=== PATIENT | female | born 1945 | race Hispanic/Latino ===

== ENCOUNTER 2017-10-19 11:23 | Inpatient (IN) | payer MEDICARE ==
[~2017-10-19] VITALS: Ht 167.6 cm; Wt 134.3 kg
[2017-10-19 12:08] LABS: BASOPHILS % (AUTO) 0.4 % (0.0-5.0); EOSINOPHILS % (AUTO) 1.9 % (0.0-8.0); HEMATOCRIT 27.3 % (36-48); LYMPHOCYTES % (AUTO) 17.4 % (21.0-51.0); MEAN CORPUSCULAR HEMOGLOBIN 28.6 pg (27.0-33.0); MEAN CORPUSCULAR HGB CONC 33.6 g/dL (32.0-36.0); MEAN CORPUSCULAR VOLUME 85.2 fL (79-99); MONOCYTES % (AUTO) 5.2 % (3.0-13.0); NEUTROPHILS % (AUTO) 75.1 % (40.0-77.0); PLATELET COUNT (AUTO) 375 K/uL (130-400); RED BLOOD CELL COUNT(AUTO) 3.21 MIL/uL (4.00-5.50); RED CELL DISTRIBUTION WIDTH 18.8 % (11.0-15.5); WHITE BLOOD COUNT (AUTO) 10.3 K/uL (4.8-10.8)
[2017-10-19] MEDS ORDERED: GLUCAGON 1MG KIT 1 MG ML IM PRN (12:15)
[2017-10-19] MEDS ORDERED: LACTULOSE 20 GM/30 ML UDCUP PO PRN (12:15)
[2017-10-19] MEDS ORDERED: ZOLPIDEM TARTRATE 5 MG TAB PO PRN (12:15)
[2017-10-19] MEDS ORDERED: MAG HYDROX/AL HYDROX/SIMETH ES 30 ML SUSP UDCUP PO PRN (12:15)
[2017-10-19] MEDS ORDERED: DIPHENHYDRAMINE HCL 25 MG CAPSULE PO PRN (12:15)
[2017-10-19] MEDS ORDERED: ONDANSETRON HCL 4 MG/2 ML VIAL IVP PRN (12:15)
[2017-10-19] MEDS ORDERED: SODIUM CHLORIDE 0.9% 10 ML VIAL IVP PRN (12:15)
[2017-10-19] MEDS ORDERED: LIDOCAINE HCL-MPF 1% 2ML VIAL IJ PRN (12:15)
[2017-10-19] MEDS ORDERED: NITROGLYCERIN 0.4 MG SL TAB SL PRN (12:15)
[2017-10-19] MEDS: SODIUM CHLORIDE 0.9% 1000ML 1,000 ML IV SCH (12:15)
[2017-10-19] MEDS ORDERED: ACETAMINOPHEN 325 MG TAB PO PRN ×2 (12:15)
[2017-10-19] MEDS ORDERED: POTASSIUM CHLORIDE 10% ELIXIR 20 MEQ/15 ML UDCUP PO PRN (12:15)
[2017-10-19] MEDS ORDERED: GUAIFENESIN SUGAR-FREE 100 MG/5 ML UDCUP PO PRN (12:15)
[2017-10-19] MEDS ORDERED: POTASSIUM CHLORIDE 20MEQ/100ML 100 ML IV PRN (12:15)
[2017-10-19] MEDS ORDERED: DiphenhydrAMINE HCL 50 MG/ML VIAL IVP PRN (12:15)
[2017-10-19] MEDS ORDERED: CLONIDINE HCL 0.1 MG TABLET PO PRN (12:15)
[2017-10-19] MEDS ORDERED: DEXTROSE 50%-WATER 50 ML DISP.SYRIN IV PRN (12:15)
[2017-10-19 12:28] LABS: CREATININE 1.4 mg/dL (0.5-1.5)
[2017-10-19 12:32] LABS: ALBUMIN 2.8 g/dL (3.5-5.0); BILIRUBIN,TOTAL 0.3 mg/dL (0.2-1.0)
[2017-10-19 12:39] LABS: B-TYPE NATRIURETIC PEPTIDE 227 pg/mL (0-100)
[2017-10-19] MEDS ORDERED: IPRATROPIUM/ALBUTEROL SULFATE 3 ML SOLUTION IH ONE (13:27)
[2017-10-19] MEDS: IPRATROPIUM/ALBUTEROL SULFATE 3 ML SOLUTION IH PRN ×3 (13:48→22:56)
[2017-10-19] MEDS: INSULIN R PO SSI SQ SCH ×2 (16:30→21:00)
[2017-10-19] MEDS ORDERED: SODIUM CHLORIDE 0.9% 1000ML 1,000 ML IV ONE (16:59)
[2017-10-19] MEDS: FAMOTIDINE 20MG TAB 20 MG TAB PO SCH (21:00)
[2017-10-19] MEDS ORDERED: NITROGLYCERIN 0.4 MG SL TAB SL ONE (23:09)
[2017-10-20] MEDS ORDERED: INSU100I21 SQ (01:30)
[2017-10-20] MEDS ORDERED: PANT40TA25 PO (01:30)
[2017-10-20] MEDS ORDERED: ADV250 IH (01:30)
[2017-10-20] MEDS ORDERED: ALBU90AE PUFF (01:30)
[2017-10-20] MEDS ORDERED: EXEN10PE3 SQ (01:30)
[2017-10-20] MEDS ORDERED: SAXA5TAB PO (01:30)
[2017-10-20] MEDS ORDERED: ALBU0.63 IH (01:30)
[2017-10-20] MEDS ORDERED: ISOS60TA4 PO (01:30)
[2017-10-20] MEDS ORDERED: CARV25TA PO (01:30)
[2017-10-20] MEDS ORDERED: GLIP10TA9 PO (01:30)
[2017-10-20] MEDS ORDERED: PREG75 PO (01:30)
[2017-10-20] MEDS ORDERED: FURO40TA5 PO (01:30)
[2017-10-20] MEDS ORDERED: ROSU10TA27 PO (01:30)
[2017-10-20] MEDS ORDERED: SERT50TA12 PO (01:30)
[2017-10-20] MEDS ORDERED: FERR324T8 PO (01:30)
[2017-10-20] MEDS ORDERED: METO2.5T2 PO (01:30)
[2017-10-20] MEDS ORDERED: SENN-183 PO (01:30)
[2017-10-20] MEDS ORDERED: POTA-9 PO (01:30)
[2017-10-20] MEDS ORDERED: ALLO100T PO (01:30)
[2017-10-20] MEDS ORDERED: AUD IH (01:38)
[2017-10-20] MEDS: IPRATROPIUM/ALBUTEROL SULFATE 3 ML SOLUTION IH PRN ×2 (01:45→06:41)
[2017-10-20] MEDS: SODIUM CHLORIDE 0.9% 1000ML 1,000 ML IV SCH ×3 (02:08→22:00)
[2017-10-20 04:00] VITALS: BP 142/60
[2017-10-20] MEDS: INSULIN R PO SSI SQ SCH ×5 (05:51→20:37)
[2017-10-20 08:00] VITALS: BP 168/76
[2017-10-20] MEDS: FAMOTIDINE 20MG TAB 20 MG TAB PO SCH ×2 (08:31→20:17)
[2017-10-20] MEDS: IPRATROPIUM/ALBUTEROL SULFATE 3 ML SOLUTION IH SCH ×4 (09:52→21:40)
[2017-10-20 11:30] VITALS: BP 136/59
[2017-10-20 16:00] VITALS: BP 171/66
[2017-10-20 20:00] VITALS: BP 148/61
[2017-10-20] MEDS ORDERED: METOCLOPRAMIDE 10 MG/2 ML VIAL IVP SCH (21:30)
[2017-10-20] MEDS ORDERED: LACTULOSE 20 GM/30 ML UDCUP PO SCH (21:30)
[2017-10-20 23:42] VITALS: BP 134/60
[2017-10-21] MEDS: IPRATROPIUM/ALBUTEROL SULFATE 3 ML SOLUTION IH SCH ×2 (01:27→06:19)
[2017-10-21 04:00] VITALS: BP 152/65
[2017-10-21 06:02] LABS: HEMATOCRIT 27.8 % (36-48); MEAN CORPUSCULAR HEMOGLOBIN 29.2 pg (27.0-33.0); MEAN CORPUSCULAR HGB CONC 34.2 g/dL (32.0-36.0); MEAN CORPUSCULAR VOLUME 85.5 fL (79-99); PLATELET COUNT (AUTO) 353 K/uL (130-400); RED BLOOD CELL COUNT(AUTO) 3.25 MIL/uL (4.00-5.50); RED CELL DISTRIBUTION WIDTH 18.9 % (11.0-15.5); WHITE BLOOD COUNT (AUTO) 15.4 K/uL (4.8-10.8)
[2017-10-21 06:21] LABS: POTASSIUM 4.1 mmol/L (3.5-5.1)
[2017-10-21 06:24] LABS: INR 0.98 (0.85-1.15); PARTIAL THROMBOPLASTIN TIME 26.6 SEC (26.3-35.5); PROTHROMBIN TIME 10.3 SEC (9.6-11.6)
[2017-10-21] MEDS: INSULIN R PO SSI SQ SCH ×3 (06:43→21:01)
[2017-10-21 07:30] VITALS: BP 164/68
[2017-10-21] MEDS: FAMOTIDINE 20MG TAB 20 MG TAB PO SCH ×2 (09:00→20:50)
[2017-10-21] MEDS ORDERED: LABETALOL 20 MG/4 ML DISP.SYRIN IV PRN (11:30)
[2017-10-21] MEDS: CEFTRIAXONE SODIUM 1 GM IVP SCH (12:13)
[2017-10-21] MEDS ORDERED: CEFTRIAXONE 1GM/D5W 50ML 50 ML IV SCH (12:30)
[2017-10-21] MEDS: IPRATROPIUM/ALBUTEROL SULFATE 3 ML SOLUTION IH PRN (13:40)
[2017-10-21 14:50] VITALS: BP 174/77
[2017-10-21] MEDS ORDERED: FUROSEMIDE 10 MG/ML 4ML VIAL IV SCH (15:00)
[2017-10-21 15:13] LABS: MAGNESIUM 2.2 mg/dL (1.80-2.40)
[2017-10-21] MEDS ORDERED: FUROSEMIDE 10 MG/ML 4ML VIAL ONE (15:42)
[2017-10-21 16:00] VITALS: BP 161/75
[2017-10-21] MEDS ORDERED: PREGABALIN 75 MG CAPSULE PO PRN (16:30)
[2017-10-21 19:16] VITALS: BP 161/66
[2017-10-21] MEDS: ISOSORBIDE MONO 60 MG TAB.SR PO SCH (20:49)
[2017-10-21] MEDS: ALLOPURINOL 100 MG TABLET PO SCH (20:50)
[2017-10-21] MEDS: FUROSEMIDE 40 MG TABLET PO SCH (20:50)
[2017-10-21] MEDS: SERTRALINE HCL 50 MG TABLET PO SCH (20:50)
[2017-10-21] MEDS: CARVEDILOL 25 MG TABLET PO SCH (20:50)
[2017-10-21] MEDS: PANTOPRAZOLE SODIUM 40 MG TABLET.DR PO SCH (20:50)
[2017-10-21] MEDS: GLIPIZIDE 5 MG TABLET PO SCH (20:51)
[2017-10-21] MEDS: METOLAZONE 2.5 MG TABLET PO SCH (20:58)
[2017-10-21] MEDS ORDERED: NON-FORMULARY MEDICATION 1 EACH (Albuterol Sulfate (Proair Respiclick) 90 MCG) PUFF SCH (21:00)
[2017-10-21] MEDS ORDERED: ALBUTEROL SULFATE 0.083% 2.5 MG/3 ML INH IH SCH (22:00)
[2017-10-21] MEDS: ALBUTEROL SULFATE 0.083% 2.5 MG/3 ML INH IH SCH (22:08)
[2017-10-21] MEDS: BUDESONIDE 0.5 MG/2 ML INH IH SCH (22:28)
[2017-10-21 23:24] VITALS: BP 139/44
[2017-10-22 03:42] VITALS: BP 132/48
[2017-10-22 04:14] LABS: MEAN CORPUSCULAR HEMOGLOBIN 27.4 pg (27.0-33.0); MEAN CORPUSCULAR HGB CONC 32.2 g/dL (32.0-36.0); MEAN CORPUSCULAR VOLUME 85.1 fL (79-99); PLATELET COUNT (AUTO) 303 K/uL (130-400); RED BLOOD CELL COUNT(AUTO) 2.94 MIL/uL (4.00-5.50); RED CELL DISTRIBUTION WIDTH 18.6 % (11.0-15.5); WHITE BLOOD COUNT (AUTO) 9.3 K/uL (4.8-10.8)
[2017-10-22 04:21] LABS: CREATININE 1.1 mg/dL (0.5-1.5); POTASSIUM 3.3 mmol/L (3.5-5.1)
[2017-10-22] MEDS: ALBUTEROL SULFATE 0.083% 2.5 MG/3 ML INH IH SCH ×3 (06:29→22:03)
[2017-10-22] MEDS: BUDESONIDE 0.5 MG/2 ML INH IH SCH ×2 (06:29→18:01)
[2017-10-22] MEDS: INSULIN R PO SSI SQ SCH ×4 (06:38→21:14)
[2017-10-22] MEDS: POTASSIUM CHLORIDE 20 MEQ ERTAB PO PRN ×3 (06:57→21:08)
[2017-10-22 07:33] VITALS: BP 133/71
[2017-10-22] MEDS: EXENATIDE 10 MCG SQ SCH ×2 (09:00→21:00)
[2017-10-22] MEDS: Rosuvastatin Calcium 10 MG PO SCH (09:00)
[2017-10-22] MEDS ORDERED: ONDANSETRON HCL MDV 20ML 2 MG/ML VIAL IVP PRN (10:00)
[2017-10-22] MEDS: CEFTRIAXONE SODIUM 1 GM IVP SCH (11:10)
[2017-10-22] MEDS: SENNOSIDES 8.6 MG TABLET PO SCH (11:11)
[2017-10-22] MEDS: FUROSEMIDE 40 MG TABLET PO SCH ×3 (11:11→21:07)
[2017-10-22] MEDS: ALLOPURINOL 100 MG TABLET PO SCH ×2 (11:11→21:06)
[2017-10-22] MEDS: GLIPIZIDE 5 MG TABLET PO SCH ×2 (11:12→21:07)
[2017-10-22] MEDS: POTASSIUM CHLORIDE 10 MEQ/TAB.SA PO SCH (11:12)
[2017-10-22 11:13] VITALS: BP 159/72
[2017-10-22] MEDS: FERROUS GLUCONATE 325 MG TABLET PO SCH ×2 (11:13→21:07)
[2017-10-22] MEDS: CARVEDILOL 25 MG TABLET PO SCH ×2 (11:13→21:06)
[2017-10-22] MEDS: PANTOPRAZOLE SODIUM 40 MG TABLET.DR PO SCH ×2 (11:13→21:06)
[2017-10-22] MEDS: FAMOTIDINE 20MG TAB 20 MG TAB PO SCH ×2 (11:13→21:06)
[2017-10-22] MEDS: INSULIN GLARGINE 100 UNITS/ML 10 ML VIAL SQ SCH (11:28)
[2017-10-22 13:26] LABS: HEMATOCRIT 25.9 % (36-48)
[2017-10-22 16:27] VITALS: BP 136/56
[2017-10-22 19:24] VITALS: BP 152/63
[2017-10-22] MEDS: ISOSORBIDE MONO 60 MG TAB.SR PO SCH (21:08)
[2017-10-22 23:26] VITALS: BP 129/42
[2017-10-23 03:29] VITALS: BP 130/54
[2017-10-23 04:21] LABS: HEMATOCRIT 24.3 % (36-48); MEAN CORPUSCULAR HGB CONC 33.3 g/dL (32.0-36.0); MEAN CORPUSCULAR VOLUME 84.2 fL (79-99); PLATELET COUNT (AUTO) 295 K/uL (130-400); RED BLOOD CELL COUNT(AUTO) 2.88 MIL/uL (4.00-5.50); WHITE BLOOD COUNT (AUTO) 9.1 K/uL (4.8-10.8)
[2017-10-23 04:34] LABS: CREATININE 1.1 mg/dL (0.5-1.5); POTASSIUM 3.7 mmol/L (3.5-5.1)
[2017-10-23] MEDS: ALBUTEROL SULFATE 0.083% 2.5 MG/3 ML INH IH SCH ×3 (06:38→20:25)
[2017-10-23] MEDS ORDERED: MORPHINE SULFATE 4 MG/1ML SYG IV PRN (07:30)
[2017-10-23] MEDS: INSULIN R PO SSI SQ SCH ×4 (07:30→21:19)
[2017-10-23 08:00] VITALS: BP 158/69
[2017-10-23] MEDS: GLIPIZIDE 5 MG TABLET PO SCH ×2 (08:42→21:11)
[2017-10-23] MEDS: ALLOPURINOL 100 MG TABLET PO SCH ×2 (08:42→21:11)
[2017-10-23] MEDS: METOLAZONE 2.5 MG TABLET PO SCH (08:42)
[2017-10-23] MEDS: FUROSEMIDE 40 MG TABLET PO SCH ×3 (08:43→21:12)
[2017-10-23] MEDS: FAMOTIDINE 20MG TAB 20 MG TAB PO SCH ×2 (08:43→21:11)
[2017-10-23] MEDS: POTASSIUM CHLORIDE 10 MEQ/TAB.SA PO SCH (08:43)
[2017-10-23] MEDS: SENNOSIDES 8.6 MG TABLET PO SCH (08:44)
[2017-10-23] MEDS: PANTOPRAZOLE SODIUM 40 MG TABLET.DR PO SCH ×2 (08:44→21:11)
[2017-10-23] MEDS: CARVEDILOL 25 MG TABLET PO SCH ×2 (08:44→21:11)
[2017-10-23] MEDS: Rosuvastatin Calcium 10 MG PO SCH (09:00)
[2017-10-23] MEDS: EXENATIDE 10 MCG SQ SCH (09:00)
[2017-10-23] MEDS: INSULIN GLARGINE 100 UNITS/ML 10 ML VIAL SQ SCH (09:00)
[2017-10-23] MEDS: BUDESONIDE 0.5 MG/2 ML INH IH SCH ×2 (09:21→20:25)
[2017-10-23 11:47] VITALS: BP 146/57
[2017-10-23] MEDS: CEFTRIAXONE SODIUM 1 GM IVP SCH (12:42)
[2017-10-23 15:49] VITALS: BP 147/55
[2017-10-23] MEDS: FERROUS GLUCONATE 325 MG TABLET PO SCH ×2 (15:53→21:12)
[2017-10-23 20:00] VITALS: BP 155/77
[2017-10-23] MEDS: ISOSORBIDE MONO 60 MG TAB.SR PO SCH (21:12)
[2017-10-23] MEDS: SERTRALINE HCL 50 MG TABLET PO SCH (21:12)
[2017-10-23 23:55] VITALS: BP 138/54
[2017-10-24 03:57] VITALS: BP 140/55
[2017-10-24 04:29] LABS: HEMATOCRIT 26.5 % (36-48); MEAN CORPUSCULAR HEMOGLOBIN 28.9 pg (27.0-33.0); MEAN CORPUSCULAR VOLUME 85.1 fL (79-99); PLATELET COUNT (AUTO) 335 K/uL (130-400); RED BLOOD CELL COUNT(AUTO) 3.11 MIL/uL (4.00-5.50); RED CELL DISTRIBUTION WIDTH 18.3 % (11.0-15.5); WHITE BLOOD COUNT (AUTO) 7.6 K/uL (4.8-10.8)
[2017-10-24] MEDS: ALBUTEROL SULFATE 0.083% 2.5 MG/3 ML INH IH SCH ×3 (06:03→22:04)
[2017-10-24] MEDS: INSULIN R PO SSI SQ SCH ×4 (06:07→21:00)
[2017-10-24] MEDS: BUDESONIDE 0.5 MG/2 ML INH IH SCH ×2 (06:25→22:04)
[2017-10-24 08:00] VITALS: BP 154/69
[2017-10-24] MEDS: Rosuvastatin Calcium 10 MG PO SCH (09:00)
[2017-10-24] MEDS: EXENATIDE 10 MCG SQ SCH (09:00)
[2017-10-24] MEDS: FAMOTIDINE 20MG TAB 20 MG TAB PO SCH ×2 (10:09→21:32)
[2017-10-24] MEDS: ALLOPURINOL 100 MG TABLET PO SCH ×2 (10:09→21:32)
[2017-10-24] MEDS: CARVEDILOL 25 MG TABLET PO SCH ×2 (10:09→21:33)
[2017-10-24] MEDS: PANTOPRAZOLE SODIUM 40 MG TABLET.DR PO SCH ×2 (10:09→21:33)
[2017-10-24] MEDS: SENNOSIDES 8.6 MG TABLET PO SCH (10:20)
[2017-10-24] MEDS: METOLAZONE 2.5 MG TABLET PO SCH (10:20)
[2017-10-24] MEDS: POTASSIUM CHLORIDE 10 MEQ/TAB.SA PO SCH (10:21)
[2017-10-24] MEDS: FERROUS GLUCONATE 325 MG TABLET PO SCH ×2 (10:21→21:32)
[2017-10-24] MEDS: FUROSEMIDE 40 MG TABLET PO SCH ×3 (10:21→21:32)
[2017-10-24] MEDS: INSULIN GLARGINE 100 UNITS/ML 10 ML VIAL SQ SCH (10:28)
[2017-10-24 11:38] VITALS: BP 169/73
[2017-10-24] MEDS: CEFTRIAXONE SODIUM 1 GM IVP SCH (11:53)
[2017-10-24 15:55] VITALS: BP 147/56
[2017-10-24 20:00] VITALS: BP 157/70
[2017-10-24] MEDS: ISOSORBIDE MONO 60 MG TAB.SR PO SCH (21:32)
[2017-10-24] MEDS: SERTRALINE HCL 50 MG TABLET PO SCH (21:33)
[2017-10-24 23:55] VITALS: BP 120/49
[2017-10-25 04:00] VITALS: BP 117/42
[2017-10-25 05:47] LABS: HEMATOCRIT 25.6 % (36-48); MEAN CORPUSCULAR HEMOGLOBIN 27.6 pg (27.0-33.0); MEAN CORPUSCULAR HGB CONC 32.5 g/dL (32.0-36.0); MEAN CORPUSCULAR VOLUME 85.1 fL (79-99); PLATELET COUNT (AUTO) 295 K/uL (130-400); RED BLOOD CELL COUNT(AUTO) 3.01 MIL/uL (4.00-5.50); WHITE BLOOD COUNT (AUTO) 6.3 K/uL (4.8-10.8)
[2017-10-25 05:59] LABS: CREATININE 1.1 mg/dL (0.5-1.5); POTASSIUM 3.2 mmol/L (3.5-5.1)
[2017-10-25] MEDS: ALBUTEROL SULFATE 0.083% 2.5 MG/3 ML INH IH SCH ×3 (06:02→21:47)
[2017-10-25] MEDS: BUDESONIDE 0.5 MG/2 ML INH IH SCH ×2 (06:17→21:55)
[2017-10-25] MEDS: INSULIN R PO SSI SQ SCH ×4 (07:30→20:50)
[2017-10-25 08:13] VITALS: BP 163/58
[2017-10-25] MEDS: INSULIN GLARGINE 100 UNITS/ML 10 ML VIAL SQ SCH (09:00)
[2017-10-25] MEDS: PANTOPRAZOLE SODIUM 40 MG TABLET.DR PO SCH ×2 (09:15→20:49)
[2017-10-25] MEDS: FUROSEMIDE 40 MG TABLET PO SCH ×3 (09:15→20:48)
[2017-10-25] MEDS: FAMOTIDINE 20MG TAB 20 MG TAB PO SCH ×2 (09:16→20:50)
[2017-10-25] MEDS: ALLOPURINOL 100 MG TABLET PO SCH ×2 (09:16→20:49)
[2017-10-25] MEDS: SENNOSIDES 8.6 MG TABLET PO SCH (09:16)
[2017-10-25] MEDS: CARVEDILOL 25 MG TABLET PO SCH ×2 (09:16→20:49)
[2017-10-25] MEDS: POTASSIUM CHLORIDE 10 MEQ/TAB.SA PO SCH (09:17)
[2017-10-25] MEDS: FERROUS GLUCONATE 325 MG TABLET PO SCH ×2 (09:36→20:48)
[2017-10-25] MEDS: Rosuvastatin Calcium 10 MG PO SCH (10:00)
[2017-10-25 12:06] VITALS: BP 171/67
[2017-10-25] MEDS: CEFTRIAXONE SODIUM 1 GM IVP SCH (12:23)
[2017-10-25] MEDS: POTASSIUM CHLORIDE 20 MEQ ERTAB PO PRN ×3 (15:10→20:49)
[2017-10-25 16:17] VITALS: BP 133/44
[2017-10-25 19:10] VITALS: BP 140/54
[2017-10-25] MEDS: ISOSORBIDE MONO 60 MG TAB.SR PO SCH (20:49)
[2017-10-25] MEDS: SERTRALINE HCL 50 MG TABLET PO SCH (20:50)
[2017-10-26] VITALS (7 sets, daily range): BP systolic 114–171; BP diastolic 51–84
[2017-10-26 05:35] LABS: MEAN CORPUSCULAR HEMOGLOBIN 27.9 pg (27.0-33.0); MEAN CORPUSCULAR HGB CONC 32.9 g/dL (32.0-36.0); MEAN CORPUSCULAR VOLUME 84.8 fL (79-99); PLATELET COUNT (AUTO) 318 K/uL (130-400); RED BLOOD CELL COUNT(AUTO) 3.07 MIL/uL (4.00-5.50)
[2017-10-26] MEDS: ALBUTEROL SULFATE 0.083% 2.5 MG/3 ML INH IH SCH ×3 (06:06→22:58)
[2017-10-26] MEDS: BUDESONIDE 0.5 MG/2 ML INH IH SCH ×2 (06:06→23:35)
[2017-10-26 08:51] LABS: CREATININE 1.1 mg/dL (0.5-1.5); POTASSIUM 3.6 mmol/L (3.5-5.1)
[2017-10-26] MEDS: EXENATIDE 10 MCG SQ SCH ×3 (09:00→21:00)
[2017-10-26] MEDS: INSULIN GLARGINE 100 UNITS/ML 10 ML VIAL SQ SCH (09:00)
[2017-10-26] MEDS: Rosuvastatin Calcium 10 MG PO SCH (09:00)
[2017-10-26] MEDS: INSULIN R PO SSI SQ SCH ×4 (10:00→21:09)
[2017-10-26] MEDS: POTASSIUM CHLORIDE 10 MEQ/TAB.SA PO SCH (10:04)
[2017-10-26] MEDS: SENNOSIDES 8.6 MG TABLET PO SCH (10:04)
[2017-10-26] MEDS: FUROSEMIDE 40 MG TABLET PO SCH ×3 (10:04→21:06)
[2017-10-26] MEDS: CARVEDILOL 25 MG TABLET PO SCH ×2 (10:05→21:06)
[2017-10-26] MEDS: PANTOPRAZOLE SODIUM 40 MG TABLET.DR PO SCH ×2 (10:05→21:06)
[2017-10-26] MEDS: FAMOTIDINE 20MG TAB 20 MG TAB PO SCH ×2 (10:05→21:06)
[2017-10-26] MEDS: FERROUS GLUCONATE 325 MG TABLET PO SCH ×2 (10:06→21:05)
[2017-10-26] MEDS: ALLOPURINOL 100 MG TABLET PO SCH ×2 (10:06→21:05)
[2017-10-26] MEDS: METOLAZONE 2.5 MG TABLET PO SCH (10:06)
[2017-10-26] MEDS: CEFTRIAXONE SODIUM 1 GM IVP SCH (12:23)
[2017-10-26] MEDS: SERTRALINE HCL 50 MG TABLET PO SCH (21:05)
[2017-10-26] MEDS: ISOSORBIDE MONO 60 MG TAB.SR PO SCH (21:05)
[2017-10-27 03:00] VITALS: BP 119/44
[2017-10-27 04:11] LABS: HEMATOCRIT 25.8 % (36-48); MEAN CORPUSCULAR HEMOGLOBIN 29.4 pg (27.0-33.0); MEAN CORPUSCULAR HGB CONC 34.5 g/dL (32.0-36.0); MEAN CORPUSCULAR VOLUME 85.1 fL (79-99); PLATELET COUNT (AUTO) 283 K/uL (130-400); RED BLOOD CELL COUNT(AUTO) 3.03 MIL/uL (4.00-5.50)
[2017-10-27] MEDS: INSULIN R PO SSI SQ SCH ×2 (06:02→13:10)
[2017-10-27] MEDS: ALBUTEROL SULFATE 0.083% 2.5 MG/3 ML INH IH SCH (06:42)
[2017-10-27] MEDS: BUDESONIDE 0.5 MG/2 ML INH IH SCH (06:42)
[2017-10-27 07:56] VITALS: BP 149/61
[2017-10-27] MEDS: INSULIN GLARGINE 100 UNITS/ML 10 ML VIAL SQ SCH (09:00)
[2017-10-27] MEDS: Rosuvastatin Calcium 10 MG PO SCH (09:00)
[2017-10-27] MEDS: EXENATIDE 10 MCG SQ SCH (09:00)
[2017-10-27] MEDS: ALLOPURINOL 100 MG TABLET PO SCH (10:25)
[2017-10-27] MEDS: PANTOPRAZOLE SODIUM 40 MG TABLET.DR PO SCH (10:25)
[2017-10-27] MEDS: FAMOTIDINE 20MG TAB 20 MG TAB PO SCH (10:25)
[2017-10-27] MEDS: CARVEDILOL 25 MG TABLET PO SCH (10:26)
[2017-10-27] MEDS: SENNOSIDES 8.6 MG TABLET PO SCH (10:31)
[2017-10-27] MEDS: FERROUS GLUCONATE 325 MG TABLET PO SCH (10:31)
[2017-10-27] MEDS: POTASSIUM CHLORIDE 10 MEQ/TAB.SA PO SCH (10:31)
[2017-10-27] MEDS: FUROSEMIDE 40 MG TABLET PO SCH ×2 (10:32→13:07)
[2017-10-27 11:06] VITALS: BP 136/60
[2017-10-27] MEDS: CEFTRIAXONE SODIUM 1 GM IVP SCH (13:07)
== END 2017-10-27 14:50 | disposition home or self-care (01) | DRG 378 ==
LOC: EDH 11:23 → EDHIP 11:55 → 3BH 23:31
PROVIDERS: ADMIT Family Medicine; ATTEND Family Medicine
DX: K92.2 Gastrointestinal hemorrhage, unspecified (principal); D62 Acute posthemorrhagic anemia; E11.22 Type 2 diabetes mellitus with diabetic chronic kidney disease; I50.9 Heart failure, unspecified; I13.0 Hypertensive heart and chronic kidney disease with heart failure and stage 1 through stage 4 chronic kidney disease, or unspecified chronic kidney disease; Z68.42 Body mass index [BMI] 45.0-49.9, adult; E66.01 Morbid (severe) obesity due to excess calories; E86.0 Dehydration; E78.5 Hyperlipidemia, unspecified; I87.8 Other specified disorders of veins; N18.9 Chronic kidney disease, unspecified; D72.829 Elevated white blood cell count, unspecified; J45.909 Unspecified asthma, uncomplicated; M19.90 Unspecified osteoarthritis, unspecified site; Z79.4 Long term (current) use of insulin; Z91.048 Other nonmedicinal substance allergy status; Z83.3 Family history of diabetes mellitus; Z80.0 Family history of malignant neoplasm of digestive organs; Z82.49 Family history of ischemic heart disease and other diseases of the circulatory system
CPT/HCPCS: 36415; 71046; 74021; 80048; 80053; 82270; 82607; 82746; 82948; 83540; 83550; 83735; 83880; 84484; 85014; 85018; 85025; 85027; 85610; 85730; 93005; 93306; 94640; 94664; A4218; J0696; J1815; J1940; J2270; J2765; J7030